=== PATIENT | male | born 1995 | race Two or more races ===

== ENCOUNTER 2024-11-12 23:02 | Emergency (ER) | payer MEDICAID, SELFPAY ==
[2024-11-12 23:47] VITALS: BP 118/78; PULSE 86; RESP 18; TEMP 37.1; O2SAT 96; BMI 28.8
--- NOTE | 2024-11-12 23:50 | XR_ITS ---
Examination: CT abdomen and pelvis without contrast. Coronal 3-D reconstructions. Sagittal 2-D reconstructions. Date and time of exam: November 13, 2024 1818 hours INDICATIONS: Left flank pain radiating to the left upper abdomen beginning one month ago steps CTDI: vol (mGy): 10.51 DLP: (mGycm): 693 Technique: Axial images of the abdomen have been obtained, 3 mm slice thickness Intravenous contrast material has not been administered. Low dose protocols were performed. One or more of the following dose reduction techniques were used; automated exposure control, adjustment of the mA and/or KV according to patient size, use of iterative reconstruction technique. Findings: No focal liver or spleen lesions excepting small liver cysts Contracted gallbladder No pancreatic or adrenal mass No renal or ureteral calculi Appendix is mildly thickened up to 10 mm with subtle appendiceal inflammatory change No pelvic abscess Colonic diverticulosis Bladder intact IMPRESSION: Suspicious for early acute appendicitis
--- NOTE | 2024-11-12 23:51 | PD.EDRME ---
Rapid Medical Screening Exam RME Arrival date/time: 11/12/24 23:02 Chief Complaint: Abdominal Pain Time Seen by Provider: 11/12/24 23:31 Vital signs: Vital Signs Temperature 98.7 F 11/12/24 23:47 Pulse Rate 86 11/12/24 23:47 Respiratory Rate 18 11/12/24 23:47 Blood Pressure 118/78 11/12/24 23:47 Pulse Oximetry (%) 96 11/12/24 23:47 Oxygen Delivery Method Room Air 11/12/24 23:47 RME Narrative: Patient is a 29-year-old male who presents with complaint of left upper quadrant abdominal pain for quite some time . States he made an appointment with his PCP, but the appointment is not for a while and his pain got worse today. No nausea, vomiting, or diarrhea. I have greeted and performed a focused initial assessment of this patient. A comprehensive ED assessment and evaluation of the patient, analysis of all test results, and completion of the medical decision making process will be conducted by additional ED providers.
[2024-11-12] MEDS: ACETAMINOPHEN 500 MG TABLET 1000 MG PO (23:55)
[2024-11-12] MEDS: MG HYD/AL HYD/SIME (Maalox Reg) SUSP 30 ML UDC PO (23:55)
[2024-11-13 00:32] LABS: Basophils % (Auto) 0 % (0-2.5); Eosinophils % (Auto) 0 % (0-10); Hematocrit 41.7 % (41.0-53.0); Hemoglobin 14.7 g/dL (13.5-16.0); Immature Granulocytes % (Auto) 0 % (0-0); Immature Granulocytes Auto 0.03 Thou/mm3 (0.00-0.00); Lymphocytes # (Auto) 2.3 Thou/mm3 (1.0-4.8); Lymphocytes % (Auto) 25 % (10-50); Mean Corpuscular HGB Conc 35.3 g/dl (31.0-37.0); Mean Corpuscular Hemoglobin 30.9 pg (25.0-35.0); Mean Corpuscular Volume 88 fL (80-100); Monocytes # (Auto) 0.8 Thou/mm3 (0.0-0.8); Monocytes % (Auto) 8 % (0-12); Neutrophils # (Auto) 5.9 Thou/mm3 (1.8-7.7); Neutrophils % (Auto) 65 % (37-80); Nucleated Red Blood Cell % 0 /100 WBC (0); Platelet Count 255 Thou/mm3 (140-440); RDW Standard Deviation 41.1 fL (35.1-43.9); Red Blood Count 4.75 Miln/mm3 (4.50-5.90)
[2024-11-13 00:39] LABS: Collection Type, Urine Clean Catch; Squamous Epithelial Cell,Urine 0 /hpf (0-5)
[2024-11-13 00:51] LABS: Alanine Aminotransferase 23 U/L (10-49); Albumin, Serum 4.8 gm/dL (3.5-5.0); Albumin/Globulin Ratio 1.8 (1.2-2.2); Alkaline Phosphatase 128 U/L (46-116); Anion Gap 7 (7-16); Aspartate Amino Transferase 29 U/L (0-34); BUN/Creatinine Ratio 19 Ratio (12-20); Bilirubin,Total 0.2 mg/dL (0.3-1.2); Blood Urea Nitrogen 17 mg/dL (9-23); Calcium 9.7 mg/dL (8.3-10.6); Calcium (Corrected) 9.7 mg/dL (8.5-10.1); Carbon Dioxide 25.6 mMol/L (20.0-31.0); Chloride 108 mMol/L (98-107); Creatinine (Component) 0.9 mg/dL (0.6-1.3); Estimated Creatinine Clearance 168.7 mL/min (>60); Globulin 2.7 gm/dL (2.3-3.5); Glucose 104 mg/dL (74-106); Lipase 37 U/L (12-53); Osmolality,Calculated 282 (275-295); Potassium 4.2 mMol/L (3.4-5.1); Sodium 141 mMol/L (136-145); Total Protein 7.5 gm/dL (5.7-8.2); eGFR > 60 See Note
[2024-11-13 01:34] LABS: Bilirubin,Urine Negative (Negative); Blood,Urine Negative (Negative); Clarity,Urine Clear (Clear/Hazy); Color,Urine Lt-Yellow (Lt Yel-Yel); Glucose, Urine Negative (Negative); Ketones,Urine Negative (Negative); Leukocyte Esterase,Urine Negative (Negative); Nitrite,Urine Negative (Negative); Protein,Urine Negative (Neg - Trace); RBC,Urine 1 /hpf (0-3); Specific Gravity,Urine 1.028 (1.001-1.035); Urobilinogen,Urine Negative mg/dL (0.0-1.0); WBC,Urine 1 /hpf (0-5)
--- NOTE | 2024-11-13 02:45 | PRELIM_ITS ---
CT scan of the abdomen and pelvis without intravenous contrast (axial sections with sagittal and derick nal reformats) November 13, 2024 at 0118 hours Clinical History: Flank pain/LUQ pain Comparison: January 17, 2024Findings:No evidence of renal/ureteric calculus or hydroureteronephrosis. There is a subcent imeter hepatic hypodensity, which is too small to characterize. The gallbladder is contracted. The sp harley, pancreas and adrenals are unremarkable on this noncontrast study.The appendix is thickened, ellis suring 1 cm with mild periappendiceal fat stranding (coronal images 69-75/157). There are multiple co lonic diverticula without evidence of diverticulitis. No evidence of bowel obstruction. There are sub centimeter mesenteric lymph nodes.The urinary bladder is partially distended and shows mild wall thic kening; possibility of cystitis cannot be excluded. There is no free fluid or free air.Mild degenerat trice changes are identified in the spine.The lung bases are clear.Please note that evaluation of soft tissue/vascular structures and bowel loops is limited due to absence of IV and oral contrast. Impress ion:1. Thickened appendix with mild periappendiceal fat stranding, suspicious for acute appendicitis. No evidence of free air.2. No evidence of renal/ureteric calculus or hydroureteronephrosis.3. Coloni c diverticulosis without evidence of diverticulitis.4. Partially distended urinary bladder with mild wall thickening; possibility of cystitis cannot be excluded.5. Other findings as described above. Sug gest clinical correlation and follow up accordingly. Discussion Details: Results Discussed With : Dr Jos Pringle at 02:40 AM 11/13/2024 Report Electronically Signed By: Yan Cedeno 11/13/2024 2:44:38 AM [EST]
--- NOTE | 2024-11-13 03:19 | EDNOTE_ITS ---
ED Abdominal Pain RME/HPI General Chief Complaint: Abdominal Pain Stated complaint: Abdominal Pain radiates to back Time seen by provider: 11/12/24 23:31 Arrival date/time: 11/12/24 23:02 RME / HPI RME / HPI narrative: Patient is a 29-year-old male who presents with complaint of left upper quadrant abdominal pain for quite some time . States he made an appointment with his PCP, but the appointment is not for a while and his pain got worse today. No nausea, vomiting, or diarrhea. I have greeted and performed a focused initial assessment of this patient. A comprehensive ED assessment and evaluation of the patient, analysis of all test results, and completion of the medical decision making process will be conducted by additional ED providers. ------ Dr. Pringle?s Main ED Evaluation: 29yo male presents to the ED for a chief complaint of LUQ pain x 7 months. Patient states his pain is intermittent, describing it as burning in nature. Patient states his pain radiates to his back and worsens after he eats. He states his pain has been progressively getting worse the last couple days, so he came in for evaluation. He denies any N/V/D, fever, chills or any other associated symptoms. Denies any PSH. No known allergies. Related Data Previous Rx's ?Medication ?Instructions ?Recorded cyclobenzaprine 10 mg tablet 10 mg PO HS #14 tabs 08/17/22 aluminum-mag hydroxide-simethicone 10 ml PO TID PRN Gastritis #3,000 11/13/24 400 mg-400 mg-40 mg/5 mL oral susp mL (Antacid Maximum Strength) famotidine 20 mg tablet (Pepcid) 20 mg PO BID 10 days #20 tabs 11/13/24 pantoprazole 40 mg tablet,delayed 40 mg PO QDAY Gastritis 10 days 11/13/24 release (Protonix) #10 tabs sucralfate 1 gram tablet (Carafate) 1 g PO TID Gastritis 10 days #30 11/13/24 tabs Allergies Allergy/AdvReac Type Severity Reaction Status Date / Time No Known Allergies Allergy Verified 08/17/22 15:37 Review of Systems Review of Systems Systems Reviewed: All systems reviewed, normal except as documented Past Medical History Social History SMOKING STATUS: Former smoker ED Exam Narrative Physical exam: GENERAL APPEARANCE: alert and oriented x 4, well-developed, well-nourished, no acute distress VITALS: All vitals were reviewed and the pulse ox is 96% on room air, which is normal according to my interpretation. HEENT: Normocephalic, atraumatic; pupils equal, round, reactive to light; EOMI; mucous membranes pink, moist; oropharynx clear NECK: Supple LUNGS: CTABL; no wheezes, no rales, no rhonchi HEART: Regular rate, regular rhythm; normal S1, S2; no murmurs ABDOMEN: non distended; normal BS; soft, no RLQ tenderness, no tenderness, no guarding, no rebound; no masses, no organomegaly, no hernia BACK: no CVA tenderness EXTREMITIES: atraumatic; no edema NEUROLOGIC: awake; alert and oriented x4; cranial nerves II-XII grossly intact; no focal sensory or motor deficits PSYCHIATRIC: appropriate mood and affect SKIN: warm, dry, normal color; no rashes Course Quality Measures none Orders Category Date Time Status CT abdomen pelvis wo con Stat Exams 11/12/24 23:50 Completed CBC Stat Lab 11/12/24 23:50 Completed CMP [Comprehensive Metabolic Panel] Stat Lab 11/12/24 23:50 Completed Lipase Stat Lab 11/12/24 23:50 Completed Urinalysis Stat Lab 11/13/24 00:14 Completed Acetaminophen Tab [Tylenol ES Tab] Med 11/12/24 23:50 Discontinued 1,000 mg PO X1 ONE Famotidine [Pepcid] Med 11/13/24 03:21 Discontinued 40 mg PO X1 ONE HYDROcodone/APAP 10/325 [[place] 10/325] Med 11/13/24 03:22 Discontinued 1 tab PO X1 ONE Ondansetron Odt [Zofran Odt] Med 11/13/24 03:21 Discontinued 4 mg PO X1 ONE Pantoprazole [Protonix] Med 11/13/24 03:22 Discontinued 40 mg PO X1 ONE Sucralfate [Carafate] Med 11/13/24 03:21 Discontinued 1 gm PO X1 ONE mg Hyd/Al Hyd/Nora Susp [Maalox Susp] Med 11/12/24 23:50 Discontinued 30 ml PO X1 ONE mg Hyd/Al Hyd/Nora Susp [Maalox Susp] Med 11/13/24 03:21 Discontinued 30 ml PO X1 ONE Reevaluation(s) Reevaluation #1: Patient states he feels better compared to when he initially came in and feels comfortable going home. Time: 04:20 Vital Signs Vital signs: Vital Signs Temperature 98.7 F 11/12/24 23:47 Pulse Rate 86 11/12/24 23:47 Respiratory Rate 18 11/12/24 23:47 Blood Pressure 118/78 11/12/24 23:47 Pulse Oximetry (%) 96 11/12/24 23:47 Oxygen Delivery Method Room Air 11/12/24 23:47 Abdominal Pain MDM MDM Narrative MDM Narrative:: Scribe Attestation: 11/13/24 - Carolina Thomas am scribing for and in the presence of Dr. Pringle. Patient data External records reviewed:: [facility] previous records (Per chart review, patient has no relevant previous ED visits or admissions.) Clinical information provided by:: patient Social determinants that could affect healthcare access:: none Patient has the following chronic illnesses:: none How is presenting disease/condition affected by chronic disease/condition?: no chronic disease Evaluation data The following diagnostics were reviewed and interpreted by me:: lab results and radiology exam(s) Lab and/or radiology exams considered but not ordered:: none Interpretation Summary: CBC is normal, CMP is normal, Lipase is normal, UA is unremarkable, according to my interpretation. ---- Telerad Preliminary Report Draft Patient: SHIRLEY GOMEZ. Record#: [id number] Birthdate: 1995 Age/Sex: 29 / M Location: [facility] [place] Attending Dr: Ordering Physician: Date of Service: Procedure(s): Accession Number(s): cc: ~ CT scan of the abdomen and pelvis without intravenous contrast (axial sections with sagittal and coronal reformats) November 13, 2024 at 0118 hours Clinical History: Flank pain/LUQ pain Comparison: January 17, 2024 Findings: No evidence of renal/ureteric calculus or hydroureteronephrosis. There is a subcentimeter hepatic hypodensity, which is too small to characterize. The gallbladder is contracted. The spleen, pancreas and adrenals are unremarkable on this noncontrast study. The appendix is thickened, measuring 1 cm with mild periappendiceal fat stranding (coronal images 69-75/157). There are multiple colonic diverticula without evidence of diverticulitis. No evidence of bowel obstruction. There are subcentimeter mesenteric lymph nodes. The urinary bladder is partially distended and shows mild wall thickening; possibility of cystitis cannot be excluded. There is no free fluid or free air. Mild degenerative changes are identified in the spine. The lung bases are clear. Please note that evaluation of soft tissue/vascular structures and bowel loops is limited due to absence of IV and oral contrast. Impression: 1. Thickened appendix with mild periappendiceal fat stranding, suspicious for acute appendicitis. No evidence of free air. 2. No evidence of renal/ureteric calculus or hydroureteronephrosis. 3. Colonic diverticulosis without evidence of diverticulitis. 4. Partially distended urinary bladder with mild wall thickening; possibility of cystitis cannot be excluded. 5. Other findings as described above. Suggest clinical correlation and follow up accordingly. Discussion Details: Results Discussed With : Dr. Pringle at 02:40 AM 11/13/2024 Report Electronically Signed By: Yan Cedeno 11/13/2024 2:44:38 AM [EST] Medications / Prescriptions Medications or Prescriptions considered but not ordered:: none Medication administrations:: Medication Administration History Discontinued Medications Acetaminophen (Acetaminophen 500 Mg Tablet) 1,000 mg PO X1 ONE Stop: 11/12/24 23:51 Last Admin: 11/12/24 23:55 Dose: 1,000 mg Documented By: OA Hydrocodone Bitart/Acetaminophen (Hydrocodone/Apap 10/325 Tab) 1 tab PO X1 ONE Stop: 11/13/24 03:23 Last Admin: 11/13/24 04:03 Dose: 1 tab Documented By: KG Al Hydrox/Mg Hydrox/Simethicone (Mg Hyd/Al Hyd/Nora (Maalox Reg) Susp 30 Ml Udc) 30 ml PO X1 ONE Stop: 11/12/24 23:51 Last Admin: 11/12/24 23:55 Dose: 30 ml Documented By: OA Al Hydrox/Mg Hydrox/Simethicone (Mg Hyd/Al Hyd/Nora (Maalox Reg) Susp 30 Ml Udc) 30 ml PO X1 ONE Stop: 11/13/24 03:22 Last Admin: 11/13/24 04:03 Dose: 30 ml Documented By: KG Famotidine (Famotidine 20 Mg Tablet) 40 mg PO X1 ONE Stop: 11/13/24 03:22 Last Admin: 11/13/24 04:03 Dose: 40 mg Documented By: KG Ondansetron HCl (Ondansetron Odt 4 Mg Tabrap) 4 mg PO X1 ONE; Protocol Stop: 11/13/24 03:22 Last Admin: 11/13/24 03:36 Dose: 4 mg Documented By: BETTY Pantoprazole Sodium (Pantoprazole 40 Mg Tablet) 40 mg PO X1 ONE Stop: 11/13/24 03:23 Last Admin: 11/13/24 04:03 Dose: 40 mg Documented By: KG Sucralfate (Sucralfate 1 Gm Tablet) 1 gm PO X1 ONE Stop: 11/13/24 03:22 Last Admin: 11/13/24 04:02 Dose: 1 gm Documented By: CLIVE see above Consultations Consultation(s) initiated? (list below): No Diagnosis Differential diagnosis abdominal pain: constipation, diverticulitis, pancreatitis and other (gastritis) Most likely diagnosis given after review of the tests above:: see below Admission Indicated Admission indicated?: not indicated Admission Request Was there a request for admission?: No Disposition Plan Disposition Plan: Discharge Discharge Attestation Discharge Attestation: The patient and all family members were given an opportunity to ask questions and understood the discharge instructions. Discharge instructions specifically effects, indications for sooner follow up or return to the emergency department, and the expected course of current diagnosis. Patient condition: Stable Discharge Plan Plan Patient Disposition: HOME (Self Care) Disposition Comment: Stable for discharge Patient condition on transfer: Stable Prescriptions/Referrals Prescriptions/Med Rec: New famotidine [Pepcid] 20 mg tablet 20 mg PO BID 10 Days Qty: 20 0RF sucralfate [Carafate] 1 gram tablet 1 g PO TID 10 Days Qty: 30 0RF alum-mag hydroxide-simeth [Antacid Maximum Strength] 400-400-40 mg/5 mL suspension 10 ml PO TID PRN (Reason: Gastritis) Qty: 3000 0RF pantoprazole [Protonix] 40 mg tablet,delayed release (DR/EC) 40 mg PO QDAY 10 Days Qty: 10 0RF No Action cyclobenzaprine 10 mg tablet 10 mg PO HS Qty: 14 0RF Referrals: Mariano Davey MD [Primary Care Provider] - In 1 week Sonja Jordan MD [Physician] - In 1 week Problem List Clinical Impression: Gastritis Patient/Caregiver Discharge Instructions Discharge Activity: activity as tolerated Education Materials: Treating Gastritis, Understanding Gastritis, ED Gastritis (Adult), ED PEPTIC ULCER vs GASTRITIS Additional Instructions: Please return to the emergency department if you have any worsening or any further medical problems. Please follow-up with Dr. Jordan within the next week or so. Dr. Jordan is her tax form preparer which is a specialist in the stomach. Just call his office and make an appointment You should also follow-up with your primary care doctor within the next several days Print Language: Gabonese Stand Alone Forms: [facility] Award Info., Patient Portal Info Letter
[2024-11-13] MEDS: ONDANSETRON ODT 4 MG TABRAP PO (03:36)
[2024-11-13] MEDS: SUCRALFATE 1 GM TABLET PO (04:02)
[2024-11-13] MEDS: MG HYD/AL HYD/SIME (Maalox Reg) SUSP 30 ML UDC PO (04:03)
[2024-11-13] MEDS: HYDROcodone/APAP 10/325 TAB PO (04:03)
[2024-11-13] MEDS: PANTOPRAZOLE 40 MG TABLET PO (04:03)
[2024-11-13] MEDS: FAMOTIDINE 20 MG TABLET 40 MG PO (04:03)
== END 2024-11-13 04:44 | disposition home or self-care (01) ==
PROVIDERS: Physician Assistant; Emergency Provider Emergency Medicine; PCP Family Medicine
DX: K29.70 Gastritis, unspecified, without bleeding (principal)
CPT/HCPCS: 36415; 74176; 80053; 81001; 83690; 85025; 99284; Q0162; A9270

== ENCOUNTER 2025-05-07 16:02 | Emergency (ER) | payer MEDICAID, SELFPAY ==
[2025-05-07 16:13] VITALS: BP 125/76; PULSE 100; RESP 18; TEMP 36.6; O2SAT 96; BMI 29.9
--- NOTE | 2025-05-07 16:24 | XR_ITS ---
Examination: Knee, right , 3 views Technique: Knee AP, lateral, oblique 3 views Date and time of exam: May 07, 2025, 1657 hours INDICATIONS: Basketball injury to the knee one week ago with persistent knee pain. FINDINGS: No acute fracture. No dislocation Mild narrowing medial joint space No knee effusion IMPRESSION: No fracture or dislocation
--- NOTE | 2025-05-07 16:25 | EDNOTE_ITS ---
<Statement entered by Sierra Adam MD - 05/16/25 19:13> As co-signing physician, I was present and available for consult prn. I concur with the plan and care as documented by the midlevel provider. Lower Extremity Injury RME/HPI General Chief Complaint: Extremity Injury, Lower Stated Complaint: RIGHT KNEE INJURY Time Seen by Provider: 05/07/25 16:10 Source: patient Arrival date/time: 05/07/25 16:02 30-year-old male with no known medical history presents to the emergency room with a chief complaint of tenderness and pain to the right knee. Patient had a ground-level fall while playing basketball 1 week ago. Mode of arrival: ambulatory Limitations: no limitations Related Data Previous Rx's ?Medication ?Instructions ?Recorded cyclobenzaprine 10 mg tablet 10 mg PO HS #14 tabs 08/06 12/28 aluminum-mag hydroxide-simethicone 10 ml PO TID PRN Ga stritis #3,000 11/13/24 400 mg-400 mg-40 mg/5 mL oral susp mL (Antacid Maximum Strength) Allergies Allergy/AdvReac Type Severity Reaction Status Date / Time No Known Allergies Allergy Verified 08/17/22 15:37 Review of Systems Review of Systems Systems Reviewed: All systems reviewed, normal except as documented Constitutional Constitutional: Reports system reviewed and no additional complaints, except as documented, Denies fatigue, Denies fever(s), Denies headache(s) and Denies weakness Eyes Eyes: Reports system reviewed and no additional complaints, except as documented, Denies blurry vision and Denies change in vision ENT Ears, Nose, Mouth, and Throat: Reports system reviewed and no additional complaints, except as documented, Denies otalgia, Denies headache(s), Denies nasal congestion, Denies throat swelling and Denies vertigo Cardiovascular Cardiovascular: Reports system reviewed and no additional complaints, except as documented, Denies chest pain, Denies dyspnea and Denies dyspnea on exertion Respiratory Respiratory: Reports system reviewed and no additional complaints, except as documented, Denies chest congestion, Denies cough, Denies dyspnea, Denies dyspnea on exertion and Denies wheezing Gastrointestinal Gastrointestinal: Reports system reviewed and no additional complaints, except as documented, Denies abdominal pain, Denies cramping, Denies nausea and Denies vomiting Genitourinary Genitourinary: Reports system reviewed and no additional complaints, except as documented, Denies dysuria and Denies hematuria Musculoskeletal Musculoskeletal: Reports system reviewed and no additional complaints, except as documented, Reports abnormal gait, Denies back pain, Reports joint swelling and Reports limited range of motion Integumentary/Breasts Skin/Breast: Reports system reviewed and no additional complaints, except as documented and Denies wounds Neurologic Neurologic: Reports system reviewed and no additional complaints, except as documented, Reports abnormal gait, Denies confusion, Denies headache(s), Denies lack of coordination, Denies vertigo and Denies weakness Psychiatric Psychiatric: Reports system reviewed and no additional complaints, except as documented, Denies anxiety, Denies confusion, Denies depression, Denies paranoia, Denies suicidal ideation and Denies tactile hallucinations Endocrine Endocrine: Reports system reviewed and no additional complaints, except as documented and Denies fatigue Hematologic/Lymphatic Hematologic/Lymphatic: Reports system reviewed and no additional complaints, except as documented and Denies lymphadenopathy Allergic/Immunologic Allergic/Immunologic: Reports system reviewed and no additional complaints, except as documented, Denies throat swelling, Denies urticaria and Denies wheezing Past Medical History Social History SMOKING STATUS: Never smoker ED Exam General Limitations: Present no limitations General appearance: Present alert and in no apparent distress Head Head exam: Present atraumatic Eye Eye exam: Present normal appearance, PERRL and EOMI ENT ENT exam: Present normal exam, normal oropharynx and mucous membranes moist Neck Neck exam: Present normal inspection, full ROM and trachea midline Chest Chest inspection: Present normal inspection and symmetric chest wall rise Respiratory Respiratory exam: Present normal lung sounds bilaterally Cardiovascular Cardiovascular exam: Present regular rate, normal rhythm and normal heart sounds Abdominal Exam Abdominal exam: Present soft and normal bowel sounds Extremities Exam Extremities exam: Present normal inspection and full ROM Back Exam Back exam: Present normal inspection and full ROM Neurological Exam Neurological exam: Present alert, oriented X3 and CN II-XII intact Psychiatric Psychiatric exam: Present normal affect and normal mood Skin Skin exam: Present warm, dry, intact and normal color Course Quality Measures none Orders Category Date Time Status agustin wrap [Splint / Immobilizer] STAT Care 05/07/25 16:24 Completed XR knee RT 3V Stat Exams 05/07/25 16:24 Completed Ketorolac Inj [Toradol Inj] Med 05/07/25 16:24 Discontinued 30 mg IM X1 ONE Vital Signs Vital signs: Vital Signs Temperature 97.8 F 07/02/25 16:13 Pulse Rate 100 05/07/25 16:13 Respiratory Rate 18 05/07/25 16:13 Blood Pressure 125/76 05/07/25 16:13 Pulse Oximetry (%) 96 05/07/25 16:13 Oxygen Delivery Method Room Air 05/07/25 16:13 O2 saturation 96% within normal limits Extremity Injury, Lower MDM Narrative MDM Narrative:: 30-year-old male with no known medical history presents to the emergency room with a chief complaint of tenderness and pain to the right knee. Patient had a ground-level fall while playing basketball 1 week ago. Patient is hemodynamically stable and in no apparent distress Physical examination shows tenderness and pain to the patient's right knee. X-ray was completed and was negative for any acute fracture or dislocation Patient was educated to follow-up with primary care provider and signs and symptoms continue he will need an MRI to assess for any ligament damage or tears. Agustin wrap was placed pain medication was given to the patient. Patient was discharged and educated to follow-up with primary care provider in the next 24 to 48 hours and return to the emergency room for any evidence of worsening signs or symptoms Patient data External records reviewed:: [facility] previous records Clinical information provided by:: patient Social determinants that could affect healthcare access:: none Patient has the following chronic illnesses:: No chronic illness How is presenting disease/condition affected by chronic disease/condition?: no chronic disease Evaluation data The following diagnostics were reviewed and interpreted by me:: lab results and radiology exam(s) Lab and/or radiology exams considered but not ordered:: Labs and radiology exams considered and ordered Interpretation Summary: X-ray right knee-FINDINGS: No acute fracture. No dislocation Mild narrowing medial joint space No knee effusion IMPRESSION: No fracture or dislocation Medications / Prescriptions Medications or Prescriptions considered but not ordered:: Medication given Medication administrations:: Medication Administration History Discontinued Medications Ketorolac Tromethamine (Ketorolac Inj 60 Mg/2 Ml Vial) 30 mg IM X1 ONE Stop: 05/07/25 16:25 Last Admin: 05/07/25 16:30 Dose: 30 mg Documented By: GM Medication given Consultations Consultation(s) initiated? (list below): No Diagnosis Extremity Injury, Lower Differential Diagnosis: other (Right knee sprain/right knee fracture/right knee dislocation) Most likely diagnosis given after review of the tests above:: Right knee sprain Admission Indicated Admission indicated?: not indicated Admission Request Was there a request for admission?: No Disposition Plan Disposition Plan: Discharge Discharge Attestation Discharge Attestation: The patient and all family members were given an opportunity to ask questions and understood the discharge instructions. Discharge instructions specifically effects, indications for sooner follow up or return to the emergency department, and the expected course of current diagnosis. Patient condition: Stable Discharge Plan Plan Patient Disposition: HOME (Self Care) Discharge Disposition comment: Stable Prescriptions/Referrals Prescriptions/Med Rec: No Action alum-mag hydroxide-simeth [Antacid Maximum Strength] 400-400-40 mg/5 mL suspension 10 ml PO TID PRN (Reason: Gastritis) Qty: 3000 0RF cyclobenzaprine 10 mg tablet 10 mg PO HS Qty: 14 0RF Problem List Clinical Impression: Right knee sprain Patient/Caregiver Discharge Instructions Education Materials: ED AGUSTIN Wrap, ED Knee Sprain Additional Instructions: Please follow-up with your primary care provider in the next 24 to 48 hours X-rays of your knee were completed and were negative for any acute fracture or dislocation If your sinus symptoms continue you will need to follow-up with your primary care provider for referral for an MRI to assess for any ligament damage or tears. For any evidence of worsening signs or symptoms return to the emergency room immediately Print Language: Luxembourgish Stand Alone Forms: Isadora Award Info., Work/School Release, Patient Portal Info Letter PA/JUAN ALBERTO Supervising Physician ESTEPHANIE/JUANA LBERTO Supervising Physician: Dr. ADAM
[2025-05-07] MEDS: KETOROLAC INJ 60 MG/2 ML VIAL 30 MG IM (16:30)
== END 2025-05-07 17:36 | disposition home or self-care (01) ==
LOC: SERX 17:34
PROVIDERS: Emergency Provider Emergency Medicine; PCP Family Medicine
DX: S83.91XA Sprain of unspecified site of right knee, initial encounter (principal); W18.30XA Fall on same level, unspecified, initial encounter; Y93.67 Activity, basketball
CPT/HCPCS: 73562; 99283; J1885

== ENCOUNTER 2025-06-10 14:35 | Emergency (ER) | payer MEDICAID, SELFPAY ==
[2025-06-10 14:36] VITALS: BMI 31.2
[2025-06-10 15:16] VITALS: BP 118/75; PULSE 95; RESP 20; TEMP 36.8; O2SAT 97
--- NOTE | 2025-06-10 15:41 | XR_ITS ---
Examination: Left elbow 2 views TECHNIQUE: AP lateral left elbow 2 views Date and time: June 10, 2025, 1612 hours INDICATIONS: Injury to the elbow today, elbow pain. FINDINGS: No fracture or dislocation. No elbow effusion IMPRESSION: No fracture or dislocation
--- NOTE | 2025-06-10 15:41 | EDNOTE_ITS ---
Upper Extremity Injury RME/HPI General Chief Complaint: Extremity Injury, Upper Stated Complaint: HIT L) ELBOW HARD Arrival date/time: 06/10/25 14:35 Related Data Previous Rx's ?Medication ?Instructions ?Recorded cyclobenzaprine 10 mg tablet 10 mg PO HS #14 tabs 08/06 12/28 aluminum-mag hydroxide-simethicone 10 ml PO TID PRN Ga stritis #3,000 11/13/24 400 mg-400 mg-40 mg/5 mL oral susp mL (Antacid Maximum Strength) Allergies Allergy/AdvReac Type Severity Reaction Status Date / Time No Known Allergies Allergy Verified 06/10/25 14:38 Course Vital Signs Vital signs: Vital Signs Temperature 98.2 F 06/10/25 15:16 Pulse Rate 95 06/10/25 15:16 Respiratory Rate 20 06/10/25 15:16 Blood Pressure 118/75 06/10/25 15:16 Pulse Oximetry (%) 97 06/10/25 15:16 Oxygen Delivery Method Room Air 06/10/25 15:16 Discharge Plan Prescriptions/Referrals Prescriptions/Med Rec: No Action alum-mag hydroxide-simeth [Antacid Maximum Strength] 400-400-40 mg/5 mL suspension 10 ml PO TID PRN (Reason: Gastritis) Qty: 3000 0RF cyclobenzaprine 10 mg tablet 10 mg PO HS Qty: 14 0RF Patient/Caregiver Discharge Instructions Print Language: Anguillan
--- NOTE | 2025-06-10 19:50 | PD.EDUPEX ---
Upper Extremity Injury RME/HPI General Chief Complaint: Extremity Injury, Upper Stated Complaint: HIT L) ELBOW HARD Time Seen by Provider: 06/10/25 18:17 Arrival date/time: 06/10/25 14:35 RME / HPI RME / HPI narrative: This section includes all my notes and documentations, including HPI, PE, and ED course. Harshal Handley MD HPI: 30yo male here with left elbow pain. Patient injured his elbow a couple months ago (hit a wall ) and reports continued to have elbow pain. No other injuries. No other complaints reported. ROS: All negative except as documented in HPI. Physical Exam: General: Alert and oriented. No acute distress when remaining still. Eyes: Conjunctivae and lids clear. ENT: No nasal congestion. Neck: Supple. Lungs: No respiratory distress. Skin: Warm and dry. Neuro: Alert and oriented X 3. Left elbow: Equivocal tenderness. No limited range of motion. I reviewed all diagnostic test results. My interpretation of the left elbow x-ray is no acute fracture. At this point, diagnoses include left elbow contusion. Recommended supportive care. Based on my best medical judgment, made decision no further evaluation or treatment indicated at this time. Patient understands and agrees to the discharge instructions customized and printed, see below. Discharge Instructions from Dr. Handley printed for you: 1. Your left elbow x-rays today show no broken bone. 2. If you are concerned about serious injury, you need to get MRI. X-rays only show big broken bones, can't see soft structure injuries. 3. See a private doctor on 06/11/2025. Ask to review official radiology report from today, to make sure you receive all necessary follow-ups and monitoring. Ask for MRI of your left elbow. 4. Seek immediate medical care with worsening or with any concerns. Harshal Handley MD Related Data Previous Rx's ?Medication ?Instructions ?Recorded cyclobenzaprine 10 mg tablet 10 mg PO HS #14 tabs 08/17/22 aluminum-mag hydroxide-simethicone 10 ml PO TID PRN Gastritis #3,000 11/13/24 400 mg-400 mg-40 mg/5 mL oral susp mL (Antacid Maximum Strength) Allergies Allergy/AdvReac Type Severity Reaction Status Date / Time No Known Allergies Allergy Verified 06/10/25 14:38 Review of Systems Review of Systems Systems Reviewed: All systems reviewed, normal except as documented ED Exam Narrative Physical exam: As noted in HPI. Course Quality Measures none Orders Category Date Time Status XR elbow LT 2V Stat Exams 06/10/25 15:41 Completed Vital Signs Vital signs: Vital Signs Temperature 98.2 F 06/10/25 15:16 Pulse Rate 95 06/10/25 15:16 Respiratory Rate 20 06/10/25 15:16 Blood Pressure 118/75 06/10/25 15:16 Pulse Oximetry (%) 97 06/10/25 15:16 Oxygen Delivery Method Room Air 06/10/25 15:16 Extremity Injury Patient data External records reviewed:: [facility] previous records (Per chart review, patient has no relevant previous ED visits.) Clinical information provided by:: patient Social determinants that could affect healthcare access:: none Patient has the following chronic illnesses:: none How is presenting disease/condition affected by chronic disease/condition?: no chronic disease Evaluation data The following diagnostics were reviewed and interpreted by me:: radiology exam(s) Lab and/or radiology exams considered but not ordered:: none Interpretation Summary: I reviewed all diagnostic test results. My interpretation of the left elbow x-ray is no acute fracture. Medications / Prescriptions Medications or Prescriptions considered but not ordered:: none Medication administrations:: none Consultations Consultation(s) initiated? (list below): No Diagnosis Upper Extremity Injury Differential Diagnosis: other (elbow fracture, elbow dislocation, elbow sprain, elbow contusion) Most likely diagnosis given after review of the tests above:: Left elbow contusion Admission Indicated Admission indicated?: not indicated Explain why admission is indicated or not indicated:: With no condition needing emergent intervention, there was no indication for admission. Admission Request Was there a request for admission?: No Disposition Plan Disposition Plan: Discharge Discharge Attestation Discharge Attestation: The patient and all family members were given an opportunity to ask questions and understood the discharge instructions. Discharge instructions specifically effects, indications for sooner follow up or return to the emergency department, and the expected course of current diagnosis. Patient condition: Stable Discharge Plan Plan Patient Disposition: HOME (Self Care) Prescriptions/Referrals Prescriptions/Med Rec: No Action alum-mag hydroxide-simeth [Antacid Maximum Strength] 400-400-40 mg/5 mL suspension 10 ml PO TID PRN (Reason: Gastritis) Qty: 3000 0RF cyclobenzaprine 10 mg tablet 10 mg PO HS Qty: 14 0RF Referrals: Mariano Davey MD [Primary Care Provider] - In 1 week Problem List Clinical Impression: Left elbow contusion Patient/Caregiver Discharge Instructions Discharge Activity: activity as tolerated Education Materials: ED Contusion, Elbow Additional Instructions: Discharge Instructions from Dr. Handley printed for you: 1. Your left elbow x-rays today show no broken bone. 2. If you are concerned about serious injury, you need to get MRI. X-rays only show big broken bones, can't see soft structure injuries. 3. See a private doctor on 06/11/2025. Ask to review official radiology report from today, to make sure you receive all necessary follow-ups and monitoring. Ask for MRI of your left elbow. 4. Seek immediate medical care with worsening or with any concerns. Print Language: Belarusian Stand Alone Forms: Isadora Award Info., Patient Portal Info Letter
== END 2025-06-10 21:09 | disposition home or self-care (01) ==
PROVIDERS: Emergency Provider Emergency Medicine; PCP Family Medicine
DX: S50.02XA Contusion of left elbow, initial encounter (principal); W22.8XXA Striking against or struck by other objects, initial encounter
CPT/HCPCS: 73070; 99282

== ENCOUNTER 2025-06-12 21:00 | Emergency (ER) | payer MEDICAID, SELFPAY ==
[2025-06-12 21:00] VITALS: BMI 28.7
[2025-06-12 21:39] VITALS: BP 131/86; PULSE 76; RESP 20; TEMP 37.4; O2SAT 95
--- NOTE | 2025-06-12 21:48 | XR_ITS ---
Examination: Left hand 2 views Technique AP lateral left hand 2 views Date and time: June 12, 2025 2151 hours INDICATIONS: Puncture injury to the hand between the third and fourth digits with pain FINDINGS: No fracture. No opaque foreign body. IMPRESSION: No opaque foreign body
--- NOTE | 2025-06-12 21:49 | EDNOTE_ITS ---
ED Wound/Laceration-RME/HPI General Chief Complaint: Wound/Laceration Stated Complaint: LAC TO LEFT HAND Time Seen by Provider: 06/12/25 21:29 Arrival date/time: 06/12/25 21:00 RME / HPI RME / HPI narrative: 30-year-old male patient came in for evaluation regarding puncture wound to the left hand between the 3rd and 4th finger with hay hook. Incident happened few hours ago. Patient is able to bend and extend the fingers without any limitation. Denies any other injury. Related Data Previous Rx's ?Medication ?Instructions ?Recorded cyclobenzaprine 10 mg tablet 10 mg PO HS #14 tabs 08/06 12/28 aluminum-mag hydroxide-simethicone 10 ml PO TID PRN Ga stritis #3,000 11/13/24 400 mg-400 mg-40 mg/5 mL oral susp mL (Antacid Maximum Strength) amoxicillin 875 mg-potassium 1 tab PO BID #14 tabs 05/30 clavulanate 125 mg tablet ibuprofen 800 mg tablet 800 mg PO Q8H PRN pain #30 t abs 06/12/25 Allergies Allergy/AdvReac Type Severity Reaction Status Date / Time No Known Allergies Allergy Verified 06/10/25 14:38 Review of Systems Review of Systems Narrative Review of Systems: Review of system reviewed and within normal limits except mentioned in HPI ED Exam Narrative Physical exam: VITAL SIGNS: Reviewed. GENERAL APPEARANCE: Alert and interactive, follows commands, no acute distress, HEAD AND FACE: Non-traumatic. RECTAL: Deferred. GENITAL: Deferred. NEUROLOGICAL: Gross motor function intact sensory function intact, Appropriate for age. MUSCULOSKELETAL: low back nontender, full range of motion. EXTREMITIES: +0.5 xm puncture wound, between 3rd and 4th finger left no active bleeding, full range of motion. SKIN: Color pink, dry, no rash, no lacerations, no abrasions, no contusions. LYMPHATICS: Deferred. Course Quality Measures none Orders Category Date Time Status XR hand LT 2V Stat Exams 06/12/25 21:48 Taken Ibuprofen Tab [Motrin Tab] Med 06/12/25 21:48 Discontinued 800 mg PO X1 ONE Ketorolac Inj [Toradol Inj] Med 06/12/25 22:03 Once 30 mg IM X1 ONE TET,DIP/PERT AC (Adult)-Tdap [Boostrix Adult (Tdap) Med 06/12/25 21:49 Discontinued Vacc] 0.5 ml IMI .ONCE ONE cephALEXin [Keflex] Med 06/12/25 21:48 Discontinued 500 mg PO X1 ONE Vital Signs Vital signs: Vital Signs Temperature 99.4 F 06/12/25 21:39 Pulse Rate 76 06/12/25 21:39 Respiratory Rate 20 06/12/25 21:39 Blood Pressure 131/86 H 06/12/25 21:39 Pulse Oximetry (%) 95 06/12/25 21:39 Oxygen Delivery Method Room Air 06/12/25 21:39 Wound / Laceration MDM Narrative MDM Narrative:: 30-year-old male patient came in for evaluation regarding puncture wound to the left hand between the 3rd and 4th finger with hay hook. Incident happened few hours ago. Patient is able to bend and extend the fingers without any limitation. Denies any other injury. X-ray of the hand came back unremarkable. Results discussed with the patient. There is no need to do primary repair with suturing since it is a puncture wound. Patient is able to bend and extend her fingers without any limitation. Patient was advised to do daily dressing with bacitracin. Patient was given Boostrix, Keflex, and Toradol IM Patient appears nontoxic and hemodynamically stable .Decision to discharge the patient. The patient/family was given an opportunity to ask questions and understood their discharge instructions. Discharge instructions specifically included follow up provider and time frame, current and/or new medications and possible side effects, indications for sooner follow up or return to the emergency department, and the expected course of current diagnosis. Patient reports feeling better as well and giving evidence of significant clinical improvement, I believe patient is now a candidate for discharge. Patient data External records reviewed:: None Clinical information provided by:: none Social determinants that could affect healthcare access:: none Patient has the following chronic illnesses:: None How is presenting disease/condition affected by chronic disease/condition?: no chronic disease Evaluation data The following diagnostics were reviewed and interpreted by me:: radiology exam(s) Lab and/or radiology exams considered but not ordered:: None Interpretation Summary: See results in MDM Medications / Prescriptions Medications or Prescriptions considered but not ordered:: None Medication administrations:: Medication Administration History Ketorolac Tromethamine (Ketorolac Inj 60 Mg/2 Ml Vial) 30 mg IM X1 ONE Stop: 06/12/25 22:04 Discontinued Medications Cephalexin HCl (Cephalexin 250 Mg Capsule) 500 mg PO X1 ONE Stop: 06/12/25 21:49 Diphtheria/Tetanus/Acell Pertussis (Diphth,Pertuss(Acell),Tet Vac 0.5 Ml Syr- Adult) 0.5 ml IMi .ONCE ONE Stop: 06/12/25 21:50 Ibuprofen (Ibuprofen Tab 400 Mg Tablet) 800 mg PO X1 ONE Stop: 06/12/25 21:49 Toradol, Keflex, and Boostrix Consultations Consultation(s) initiated? (list below): No Diagnosis Wound Differential Diagnosis: laceration, abrasion and avulsion of skin Most likely diagnosis given after review of the tests above:: Puncture wound hand Admission Indicated Admission indicated?: not indicated Admission Request Was there a request for admission?: No Disposition Plan Disposition Plan: Discharge Discharge Attestation Discharge Attestation: The patient was given an opportunity to ask questions and understood the discharge instructions. Discharge instructions specifically effects, indications for sooner follow up or return to the emergency department, and the expected course of current diagnosis. Patient condition: Stable Discharge Plan Plan Patient Disposition: HOME (Self Care) Discharge Disposition comment: Stable Prescriptions/Referrals Prescriptions/Med Rec: New ibuprofen 800 mg tablet 800 mg PO Q8H PRN (Reason: pain) Qty: 30 0RF amoxicillin-pot clavulanate 875-125 mg tablet 1 tab PO BID Qty: 14 0RF No Action alum-mag hydroxide-simeth [Antacid Maximum Strength] 400-400-40 mg/5 mL suspension 10 ml PO TID PRN (Reason: Gastritis) Qty: 3000 0RF cyclobenzaprine 10 mg tablet 10 mg PO HS Qty: 14 0RF Referrals: Temporary Provider,ED [Primary Care Provider] - In 1 week Problem List Clinical Impression: Puncture wound of hand Patient/Caregiver Discharge Instructions Discharge Activity: activity as tolerated Education Materials: ED Puncture Wound (General) Additional Instructions: Thank you for the opportunity for serving you today. You are stable for discharged . You are advised to: Follow-up with your PCP in 1 to 2 days Return to ED for worsening of symptoms Increase oral fluids Take medication as prescribed Daily dressing with Neosporin as needed Print Language: Peruvian Stand Alone Forms: Isadora Award Info., Work/School Release, Patient Portal Info Letter ESTEPHANIE/HEATING ELEMENT BUILDER Supervising Physician PA/HEATING ELEMENT BUILDER Supervising Physician: MD Emmanuelle
[2025-06-12] MEDS: DIPHTH,PERTUSS(ACELL),TET VAC 0.5 ML SYR- ADULT IMi (22:30)
== END 2025-06-12 22:38 | disposition home or self-care (01) ==
LOC: SERX 22:38
PROVIDERS: Emergency Provider Emergency Medicine
DX: S61.432A Puncture wound without foreign body of left hand, initial encounter (principal); W26.8XXA Contact with other sharp object(s), not elsewhere classified, initial encounter; Z23 Encounter for immunization
CPT/HCPCS: 73120; 90471; 90715; 99283; A9270

== ENCOUNTER → 2025-07-29 | Outpatient (CLI) | payer MEDICAID, SELFPAY ==
--- NOTE | 2025-07-29 15:23 | XR_ITS ---
Examination: CT abdomen with intravenous contrast CT pelvis with intravenous contrast 2-D coronal reconstructions 2-D sagittal reconstructions Date and time of exam:July 29, 2025 1526 hours INDICATIONS: Intermittent left upper abdominal pain one year, CT abdomen pelvis November 13, 2024 acute appendicitis. CTDI: vol (mGy) 11.5 DLP: (mGycm) 784 Technique: Multiple axial sections of the abdomen and pelvis have been obtained. 64 slice high-resolution scanner used. 3 mm axial sections have been obtained, post intravenous injection 60 cc [id number] 2-D sagittal, coronal reconstructions obtained. Low dose protocols were performed. One or more of the following dose reduction techniques were used; automated exposure control, adjustment of the mA and/or KV according to patient size, use of iterative reconstruction technique. Findings: 7 mm liver cyst No biliary tract dilatation Spleen is not enlarged No pancreatic or adrenal mass No abdominal or pelvic lymphadenopathy No renal or ureteral calculi, no hydronephrosis Normal appendix No bowel obstruction No prostatomegaly Contracted urinary bladder No pathologic mesenteric lymphadenopathy IMPRESSION: No pathologic abdominal or pelvic lymphadenopathy
== END | disposition home or self-care (01) ==
PROVIDERS: Referring Provider Nurse Practitioner Family; Visit Provider Nurse Practitioner Family
DX: R59.0 Localized enlarged lymph nodes (principal)
CPT/HCPCS: 74177; A4649; Q9967

== ENCOUNTER 2025-09-24 13:05 | Emergency (ER) | payer MEDICAID, SELFPAY ==
[2025-09-24 13:08] VITALS: BP 140/94; PULSE 81; RESP 16; TEMP 36.6; O2SAT 97; BMI 29.9
--- NOTE | 2025-09-24 13:13 | EDNOTE_ITS ---
ED Psych RME/HPI General Chief Complaint: Psychiatric Symptoms Stated Complaint: HOLD Time Seen by Provider: 09/24/25 13:08 Arrival date/time: 09/24/25 13:05 30-year-old male patient with no past medical history, was brought in by law enforcement for 5150 hold. Onset of symptoms for several weeks, worsening depression, according to EMS danger to himself. Patient denies any plans. Denies any homicidal ideation. Patient told me that he is more depressed because Alfreda is coming and holidays coming and had no job and no money. Denies any intake of drugs or alcohol abuse. Currently not on any medication for psych. Related Data Previous Rx's ?Medication ?Instructions ?Recorded cyclobenzaprine 10 mg tablet 10 mg PO HS #14 tabs 08/06 12/28 aluminum-mag hydroxide-simethicone 10 ml PO TID PRN Ga stritis #3,000 11/13/24 400 mg-400 mg-40 mg/5 mL oral susp mL (Antacid Maximum Strength) amoxicillin 875 mg-potassium 1 tab PO BID #14 tabs 05/30 clavulanate 125 mg tablet ibuprofen 800 mg tablet 800 mg PO Q8H PRN pain #30 t abs 06/12/25 Allergies Allergy/AdvReac Type Severity Reaction Status Date / Time No Known Allergies Allergy Verified 09/24/25 13:58 Review of Systems Review of Systems Narrative Review of Systems: Review of system reviewed and within normal limits except mentioned in HPI ED Exam Narrative Physical exam: VITAL SIGNS: Reviewed. GENERAL APPEARANCE: Alert and interactive, follows commands, no acute distress, HEAD AND FACE: Non-traumatic. ENT: PERRL, pink conjunctivitis, eyelid no trauma, Mucous membrane moist. NECK: Supple, nontender, no nuchal rigidity. CHEST: No tenderness, no crepitus, no paradoxical movement, no retractions. LUNGS: Clear, well ventilated, symmetric, no rales, no wheezing, no ronchi, no stridor, good breath sounds bilaterally. HEART: Regular rate, regular rhythm, no murmur, no gallops. ABDOMEN: Soft, positive bowel sounds, nondistended, no guarding, nontender, no rebound, no masses, RECTAL: Deferred. GENITAL: Deferred. NEUROLOGICAL: Gross motor function intact sensory function intact, Appropriate for age. MUSCULOSKELETAL: low back nontender, full range of motion. EXTREMITIES: Nontender, full range of motion. SKIN: Color pink, dry, no rash, no lacerations, no abrasions, no contusions. LYMPHATICS: Deferred. Course Quality Measures none Orders Category Date Time Status One-to-one observation NOW Care 09/24/25 13:40 Active Suicide precautions NOW Care 09/24/25 13:40 Active Diet Regular Diet 09/24/25 Dinner Active Acetaminophen Stat Lab 09/24/25 13:20 Completed Alcohol, Blood Medical Stat Lab 09/24/25 13:20 Completed CBC Stat Lab 09/24/25 13:20 Completed CMP [Comprehensive Metabolic Panel] Stat Lab 09/24/25 13:20 Completed Drug Screen,Urine Stat Lab 09/24/25 13:26 Completed Salicylate Stat Lab 09/24/25 13:20 Completed Urinalysis Stat Lab 09/24/25 13:26 Completed Referral [employer] NOW 09/24/25 15:02 Active Vital Signs Vital signs: Vital Signs Temperature 97.9 F 09/24/25 13:08 Pulse Rate 81 09/24/25 13:08 Respiratory Rate 16 09/24/25 13:08 Blood Pressure 140/94 H 09/24/25 13:08 Pulse Oximetry (%) 97 09/24/25 13:08 Oxygen Delivery Method Room Air 09/24/25 13:08 Psych MDM Narrative MDM Narrative:: 30-year-old male patient with no past medical history, was brought in by law enforcement for 5150 hold. Onset of symptoms for several weeks, worsening depression, according to EMS danger to himself. Patient denies any plans. Denies any homicidal ideation. Patient told me that he is more depressed because Alfreda is coming and holidays coming and had no job and no money. Denies any intake of drugs or alcohol abuse. Currently not on any medication for psych. Patient's workup came back unremarkable except for positive marijuana. Otherwise within normal limits. Patient is medically cleared for crisis intervention Patient is cooperative and calm Care transferred to Dr Cabral for final disposition pending placement/eval by crisis Patient data External records reviewed:: None Clinical information provided by:: patient Social determinants that could affect healthcare access:: substance use Patient has the following chronic illnesses:: None How is presenting disease/condition affected by chronic disease/condition?: no chronic disease Evaluation data The following diagnostics were reviewed and interpreted by me:: lab results Lab and/or radiology exams considered but not ordered:: None Interpretation Summary: See above Medications / Prescriptions Medications or Prescriptions considered but not ordered:: None Medication administrations:: None Consultations Consultation(s) initiated? (list below): No Diagnosis Psych Differential Diagnosis: suicidal ideation, depression and acute anxiety Most likely diagnosis given after review of the tests above:: 5150 hold, depression, suicidal ideation Admission Indicated Admission indicated?: not indicated Admission Request Was there a request for admission?: No Admission Attestation Admission request attestation: Pending final disposition Disposition Plan Disposition Plan: other (specify) Discharge Plan Prescriptions/Referrals Prescriptions/Med Rec: No Action alum-mag hydroxide-simeth [Antacid Maximum Strength] 400-400-40 mg/5 mL suspension 10 ml PO TID PRN (Reason: Gastritis) Qty: 3000 0RF ibuprofen 800 mg tablet 800 mg PO Q8H PRN (Reason: pain) Qty: 30 0RF amoxicillin-pot clavulanate 875-125 mg tablet 1 tab PO BID Qty: 14 0RF cyclobenzaprine 10 mg tablet 10 mg PO HS Qty: 14 0RF Referrals: Mariano Davey MD [Primary Care Provider, Family Practice] - In 1 week Problem List Clinical Impression: Suicidal ideation, Depression Patient/Caregiver Discharge Instructions Print Language: Maori
--- NOTE | 2025-09-24 13:16 | PC.CC ---
1316-Pt is a 30 yo male who was BIB [facility] on a 5150 Hold for DTS, as it was reported that pt made suicidal statement to college staff and his mother. ASW met with pt and told him that once he is medically cleared, ASW will assess the pt. Pt understood and was calm and cooperative.
[2025-09-24 13:39] LABS: Collection Type, Urine Clean Catch; Squamous Epithelial Cell,Urine 0 /hpf (0-5)
[2025-09-24 13:40] LABS: Basophils # (Auto) 0.0 Thou/mm3 (0.0-0.2); Basophils % (Auto) 0 % (0-2.5); Eosinophils # (Auto) 0.0 Thou/mm3 (0.0-0.5); Eosinophils % (Auto) 0 % (0-10); Hematocrit 49.0 % (41.0-53.0); Hemoglobin 17.0 g/dL (13.5-16.0); Immature Granulocytes Auto 0.02 Thou/mm3 (0.00-0.00); Lymphocytes # (Auto) 2.8 Thou/mm3 (1.0-4.8); Lymphocytes % (Auto) 34 % (10-50); Mean Corpuscular HGB Conc 34.7 g/dl (31.0-37.0); Mean Corpuscular Hemoglobin 31.2 pg (25.0-35.0); Mean Corpuscular Volume 90 fL (80-100); Monocytes # (Auto) 0.7 Thou/mm3 (0.0-0.8); Monocytes % (Auto) 9 % (0-12); Neutrophils # (Auto) 4.7 Thou/mm3 (1.8-7.7); Neutrophils % (Auto) 57 % (37-80); Nucleated Red Blood Cell # 0.00 Thou/mm3 (0.00-0.00); Nucleated Red Blood Cell % 0 /100 WBC (0); Platelet Count 291 Thou/mm3 (140-440); RDW Standard Deviation 39.9 fL (35.1-43.9); Red Blood Count 5.45 Miln/mm3 (4.50-5.90); White Blood Count 8.2 Thou/mm3 (3.8-10.6)
[2025-09-24 13:49] LABS: Bilirubin,Urine Negative (Negative); Blood,Urine 1+ (Negative); Clarity,Urine Clear (Clear/Hazy); Color,Urine Yellow (Lt Yel-Yel); Glucose, Urine Negative (Negative); Ketones,Urine 2+ (Negative); Leukocyte Esterase,Urine Negative (Negative); Nitrite,Urine Negative (Negative); PH,Urine 6.0 (5.0-7.0); Protein,Urine 1+ (Neg - Trace); RBC,Urine 4 /hpf (0-3); Specific Gravity,Urine 1.040 (1.001-1.035); Urobilinogen,Urine 2.0 mg/dL (0.0-1.0); WBC,Urine 1 /hpf (0-5)
[2025-09-24 13:55] LABS: Amphetamine/Methamp Scrn,U Negative (Negative); Barbiturate Screen,Urine Negative (Negative); Benzodiazepines Screen,Urine Negative (Negative); Benzoylecgonine Screen, Ur Negative (Negative); Fentanyl Screen,Urine Negative (Negative); Opiate Screen,Urine Negative (Negative); THC Screen,Urine Positive (Negative)
[2025-09-24 14:22] LABS: Acetaminophen < 2.0 mcg/mL (10.0-20.0); Alanine Aminotransferase 21 U/L (10-49); Albumin, Serum 5.7 gm/dL (3.5-5.0); Albumin/Globulin Ratio 2.1 (1.2-2.2); Alcohol, Blood Medical < 3.0 mg/dL (0-10.0); Alkaline Phosphatase 96 U/L (46-116); Anion Gap 10 (7-16); Aspartate Amino Transferase 29 U/L (0-34); BUN/Creatinine Ratio 10 Ratio (12-20); Bilirubin,Total 0.9 mg/dL (0.3-1.2); Blood Urea Nitrogen 9 mg/dL (9-23); Calcium 10.8 mg/dL (8.3-10.6); Calcium (Corrected) 10.8 mg/dL (8.5-10.1); Carbon Dioxide 27.2 mMol/L (20.0-31.0); Chloride 106 mMol/L (98-107); Creatinine (Component) 0.9 mg/dL (0.6-1.3); Estimated Creatinine Clearance 161.4 mL/min (>60); Globulin 2.7 gm/dL (2.3-3.5); Glucose 131 mg/dL (74-106); Osmolality,Calculated 285 (275-295); Potassium 4.3 mMol/L (3.4-5.1); Salicylate < 3.0 mg/dL; Sodium 143 mMol/L (136-145); Total Protein 8.4 gm/dL (5.7-8.2); eGFR > 60 See Note
[2025-09-24 16:19] VITALS: BP 125/89; PULSE 72; RESP 18; TEMP 36.7; O2SAT 96
[2025-09-24 18:00] VITALS: BP 135/84; PULSE 71; RESP 18; TEMP 36.6; O2SAT 96
--- NOTE | 2025-09-24 22:49 | PD.EDADDENDU ---
Emergency Room Addendum Addendum Narrative: 23:00 - Care assumed from Bonnie Moore NP (emergency mid-level provider). Past medical, surgical, social and family history reviewed. Vitals and home medications reviewed. Results and treatment plan discussed. I will assume the care of the patient at this time and will follow the patient, pending psychiatric evaluation. The patient had access and provided personal hygiene, shower, food, water, and daily medications. 06:00 - Care assumed by Dr. Granados (emergency physician). Past medical, surgical, social and family history reviewed. Vitals and home medications reviewed. Results and treatment plan discussed. They will assume the care of the patient at this time and will follow the patient, pending psychitraic evaluation.
[2025-09-25 06:21] VITALS: BP 128/86; PULSE 84; RESP 17; TEMP 36.7; O2SAT 97
--- NOTE | 2025-09-25 09:38 | PC.CC ---
SALAZAR conducted face to face interview with patient after reviewing 5150 hold written by law enforcement and discussing the information received via collateral interviews by Marian Jackson. Pt presents as very anxious with pressured and rambling speech - however redirectable. PT states he presented to [facility] yesterday and met with a counselor to discuss a certification program. In this discussion he states he became tearful and expressed his frustrations and feelings of hopelessness around his ability to obtain meaningful employment. He states that he kept making the statement that he will be forced to make a decsion at the end of the year he doesn't want to make that would result in him no longer being here. 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 He says by then he will be out of his savings and have no other choice. He says he has a criminal history that is preventing him from getting other employment opportunities and that regardless of how hard he works to put that behind him, it always comes up in job back ground searches. He states he lives with his mother, who provided collateral information to Marian Jackson. She indicates that her son speaks out of anger and frustration, but she has not heard him make statements about SI or HI. It was found that he was connected to [facility] and saw a counselor there 4x. PT notes that his support system consists of his mother, children, friends, and children's mother. He says he has a championship basketball game to play in [place] that he is looking forward to, and that he has other things in his life such as his dogs, his kids, going to the gym, and playing basketball that are all protective factors. When asked, patient adamantly denies SI and HI. He states he has no prior psych hx and does not take medications. He uses marijuana regularly, but denies other substances. At this time, patient does not meet criteria for a continued 5150 hold, and therefore the hold is being rescinded. Patricia Andrade, PLANT AND MAINTENANCE TECHNICIAN [phone]
--- NOTE | 2025-09-25 09:55 | PC.SS ---
Patient was brought in by Law Enforcement and was placed on a 5150 hold. Per officer. Amador patient had been making suicidal statements to [facility] Counselor. ?? ?ROSANNE met with the patient at bedside and introduced self, their roles, and the reason for the consult. ROSANNE went over the limits of confidentially. Patient is alert and oriented to person, place, time, and situation. Patient verbally consented to participate in the assessment. Patient presented appropriately, cooperative, and with good eye contact. Patient presented with no signs of delusions, paranoia, or hallucinations. Patient designated his mother, Shabana Biswas, [phone], as his surrogate medical decision maker and provided verbal consent for ROSANNE to contact her for collateral information. Patient Obinna Biswas, , 30 y/o, Nepalese-speaking male residing with his parents at [address] [place] [address]. Patient reports sharing custody and reports a good co-parenting relationship. Patient reports great family support from his mother and father. Patient is independent and able to attend to his ADLs. Patient is insured by [employer]. Patient's PCP is from [facility]. Patient states he is established with a therapist at [facility]. Patient provided verbal consent for Kaila to contact his mother, Shabana via Phone to gather collateral information. 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 Marian LAY also contacted [facility] to obtain additional collateral. ROSANNE spoke to Nicho, [employer], who stated that due to HIPPA regulations, further information could not be disclosed. Nicho did express concern regarding the patient?s statements and therefore contacted law enforcement, indicating that such threats are taken seriously. Patient denied MH hx, abuse/neglect. Patient denied current suicidal/homicidal ideations, visual/auditory hallucinations; Patient does not have a plan or intent to harm himself or others. Patient continues to deny any thoughts of wanting to end his life. Patient report Patient's protective factors are his three children and his family. ?Patient is open and interested in mental health services. Per the chart review, the patient was positive for Marijuana. Patricia LINCOLN met with patient for initial assessment. After clinical consultation with Patricia LINCOLN, it was decided that the patient could be released on a safety plan. ??ROSANNE provided the patient with AOD resources, Community resources and Mental Health appointment with [facility] with? ?Dr. Porsche Dejesus on September 26 at 8:30Am. Patient agreeable to attend to appointment. ROSANNE provided the patient with date, time and place of appointment. ?At this time, patient does not meet 5150 criteria. Hold rescinded. Patient and mother are willing to safety plan. Dr. Granados was made aware of safety plan.?
--- NOTE | 2025-09-25 10:15 | PD.EDADDENDU ---
Emergency Room Addendum Addendum Narrative: Patient signed out to me by Dr. Cabral pending crisis evaluation. Patient was evaluated by crisis and is ragini for safety. He is medically cleared he is stable for discharge home and is to follow-up outpatient. Return precautions were advised. Dx: Suicidal ideation, depression, life stress Dispo: DC home
[2025-09-25 10:24] VITALS: BP 135/87; PULSE 75; RESP 16; TEMP 36.6; O2SAT 97
== END 2025-09-25 10:25 | disposition home or self-care (01) ==
PROVIDERS: Nurse Practitioner Family; Emergency Provider Family Medicine; PCP Family Medicine
DX: R45.851 Suicidal ideations (principal); F32.A Depression, unspecified; Z59.6 Low income
CPT/HCPCS: 36415; 80053; 80307; 80320; 80329; 81001; 85025; 96127; 99283; G0480